=== PATIENT | female | born 1990 | race Hispanic/Latino ===

== ENCOUNTER 2018-05-20 12:25 | Emergency (ER) | payer OTHER ==
[2018-05-20 12:40] VITALS: BP 140/95; PULSE 77; RESP 18; O2SAT 100
--- NOTE | 2018-05-20 12:42 | ED PDOC ---
HPI: Wound Care - HPI Time Seen by Provider: 05/20/18 12:41 Chief Complaint (Nursing): Abnormal Skin Integrity Chief Complaint (Provider): finger injury History Per: Patient Additional Complaint(s): 27 year old right hand dominant female presents with avulsion to fingernail of left index finger sustained about 20 minutes prior to arrival when patient was chopping food at home. Tetanus is up to date. Patient applied pressure dressing and came right to ED. PMD: in [facility] Past Medical History Reviewed: Historical Data, Nursing Documentation, Vital Signs Vital Signs: Last Vital Signs Temp 98.2 F 05/20/18 12:37 Pulse 77 05/20/18 12:37 Resp 18 05/20/18 12:37 BP 140/95 H 05/20/18 12:37 Pulse Ox 100 05/20/18 12:37 - Medical History PMH: No Chronic Diseases - Surgical History Other surgeries: cardiac ablation - Family History Family History: States: No Known Family Hx - Living Arrangements Living Arrangements: With Friends/Others - Social History Current smoker - smoking cessation education provided: No Alcohol: None Drugs: Denies - Immunization History Hx Tetanus Toxoid Vaccination: Yes - Allergies Allergies/Adverse Reactions: Allergies Allergy/AdvReac Type Severity Reaction Status Date / Time No Known Allergies Allergy Verified 05/20/18 12:37 Review of Systems ROS Statement: Except As Marked, All Systems Reviewed And Found Negative Musculoskeletal: Positive for: Other (left index finger injury) Physical Exam - Reviewed Nursing Documentation Reviewed: Yes Vital Signs Reviewed: Yes - Physical Exam Appears: Positive for: Well, Non-toxic, No Acute Distress Skin: Positive for: Normal Color. Negative for: Rash Eye Exam: Positive for: Normal appearance Extremity: Positive for: Other (Partial nail avulsion noted to left index finger with mild active bleeding, exposure of the nailbed noted with no bony exposure) Neurologic/Psych: Positive for: Alert, Oriented - ECG O2 Sat by Pulse Oximetry: 100 Pulse Ox Interpretation: Normal Medical Decision Making Medical Decision Makin27 year old with nail avulsion injury Patient declined pain medication. Procedure Note: Wound was cleansed with normal saline and Betadine, gel foam was applied overlying open wound, secured with gauze wrap, good bleeding control was achieved, procedure tolerated well by patient with no complications. Advised ice, elevation, NSAIDs for pain. Advised wound recheck in 2-3 days. Disposition - Clinical Impression Clinical Impression: Nail avulsion, finger - Patient ED Disposition Is Patient to be Admitted: No Counseled Patient/Family Regarding: Need For Followup - Disposition Referrals: Maximilian An MD [Staff Provider] - Disposition: Routine/Home Disposition Time: 12:55 Condition: STABLE Additional Instructions: KEEP WOUND CLEAN AND DRY. AFTER 1-2 DAYS REMOVE DRESSING AND FOAM. WOUND WILL CONTINUE TO HEAL FROM HERE. TAKE ADVIL FOR PAIN NEEDED. ICE AND ELEVATE AFFECTED HAND. FOLLOW UP WITH HAND SPECIALIST NEEDED. Instructions: Nail Avulsion Forms: [email or web address] ([place]ian)
[2018-05-20] MEDS ORDERED: Absorbable Gelatin Sponge Size 12-7 TP STA (12:50)
[2018-05-20] MEDS ORDERED: Absorbable Gelatin Sponge Size 12-7 ONE (12:51)
[2018-05-20 13:40] VITALS: TEMP 97.9
== END 2018-05-20 13:39 | disposition home or self-care (01) ==
LOC: H.ER 12:25
DX: S61.301A Unspecified open wound of left index finger with damage to nail, initial encounter (principal); W26.0XXA Contact with knife, initial encounter; Y93.G1 Activity, food preparation and clean up; Y92.009 Unspecified place in unspecified non-institutional (private) residence as the place of occurrence of the external cause